=== PATIENT | male | born 1985 | race Caucasian/White ===

== ENCOUNTER 2020-06-17 18:41 | Emergency (ER) | payer BC, MEDICAID ==
[~2020-06-17] VITALS: Ht 175.3 cm; Wt 61.8 kg
[~2020-06-17 18:41] MED LIST: MECL-159
[2020-06-17 18:47] VITALS: BP 156/98
[2020-06-17] MEDS ORDERED: NAPR-56 PO (19:33)
[2020-06-17] MEDS ORDERED: TRAM50TA2 PO (19:33)
[2020-06-17] MEDS ORDERED: ketorolac trometh inj. 60 MG/2 ML VIAL IM ONE (19:35)
== END 2020-06-17 19:56 | disposition home or self-care (01) ==
LOC: ER 18:42
DX: M25.562 Pain in left knee (principal); G89.29 Other chronic pain; F12.90 Cannabis use, unspecified, uncomplicated; Z72.89 Other problems related to lifestyle; Z56.0 Unemployment, unspecified; Z79.899 Other long term (current) drug therapy
CPT/HCPCS: 29505; 96372; 99284; J1885

== ENCOUNTER 2022-02-04 16:35 | Emergency (ER) | payer BC ==
[~2022-02-04] VITALS: Ht 175.3 cm; Wt 62.7 kg
[2022-02-04 16:41] VITALS: BP 111/73
[2022-02-04] MEDS ORDERED: CEPH-585 PO (17:21)
== END 2022-02-04 17:54 | disposition home or self-care (01) ==
LOC: ER 16:36
DX: L02.31 Cutaneous abscess of buttock (principal); G89.29 Other chronic pain; M54.50 Low back pain, unspecified; J44.9 Chronic obstructive pulmonary disease, unspecified; F12.90 Cannabis use, unspecified, uncomplicated; Z56.0 Unemployment, unspecified
CPT/HCPCS: 99283

== ENCOUNTER 2023-08-21 12:37 | Emergency (ER) | payer BC, OTHER ==
[~2023-08-21] VITALS: Ht 177.8 cm; Wt 63.6 kg
[~2023-08-21 12:37] MED LIST changes: -MECL-159; +MECL-302
[2023-08-21] MEDS: LIDOcaine 1% W/epiNEPHrine 1:100,000 20ml vial IJ ONE (12:55)
[2023-08-21 13:15] LABS: BASOPHILS % (AUTO) 0.3 % (0-1); EOSINOPHILS # (AUTO) 0.1 X10'3 (0-0.9); HEMATOCRIT 42.1 % (42.0-52.0); HEMOGLOBIN 14.1 g/dl (14.0-17.9); LYMPHOCYTES # (AUTO) 2.3 X10'3 (1.1-4.8); LYMPHOCYTES % (AUTO) 16.3 % (21-51); MEAN CORPUSCULAR HEMOGLOBIN 29.6 PG (27.0-31.0); MEAN CORPUSCULAR HGB CONC 33.4 g/dL (33.0-36.5); MEAN CORPUSCULAR VOLUME 88.7 FL (78-98); MONOCYTES # (AUTO) 1.2 X10'3 (0-0.9); MONOCYTES % (AUTO) 8.2 % (2-12); NEUTROPHILS # (AUTO) 10.5 X10'3 (1.8-7.7); NEUTROPHILS % (AUTO) 74.2 % (42-75); PLATELET COUNT 273 X10'3 (140-440); RED BLOOD COUNT 4.74 X10'6 (4.70-6.10); WHITE BLOOD COUNT 14.2 X10'3 (4.5-11.0)
[2023-08-21 13:34] LABS: ALBUMIN 4.1 G/DL (3.4-5.0); ANION GAP 9 (8-16); BLOOD UREA NITROGEN 10 MG/DL (7-18); BUN/CREATININE RATIO 7.1 (10.0-20.0); CALCIUM 9.1 MG/DL (8.5-10.1); CHLORIDE 104 MMOL/L (99-107); GLUCOSE 173 MG/DL (70-104); POTASSIUM 3.3 MMOL/L (3.5-5.1); PRO BRAIN NATRIURETIC PEPTIDE < 30 PG/ML (0-125); SODIUM 141 MMOL/L (135-145); TOTAL CARBON DIOXIDE 27.7 MMOL/L (24-32); eCRCL 65 ML/MIN; eGFR 57 ML/MIN
[2023-08-21] MEDS: TETanus/Pertussis (Acell)/Diphther VAC/PF (Tdap-Adult) 0.5ml syringe IMVAC ONE (13:46)
[2023-08-21] MEDS: ondansetron/PF 4mg/2ml inj IV ONE (13:50)
[2023-08-21] MEDS ORDERED: AMOX-117 PO (13:52)
[2023-08-21] MEDS ORDERED: HYDR-3965 PO (13:52)
[2023-08-21] MEDS: acetaminophen 1,000mg/100ml IV 100 ML IV STA (13:55)
[2023-08-21 15:50] VITALS: BP 115/74; PULSE 84; RESP 18; O2SAT 97
== END 2023-08-21 15:55 | disposition home or self-care (01) ==
LOC: ER 12:38
DX: S01.112A Laceration without foreign body of left eyelid and periocular area, initial encounter (principal); S02.32XA Fracture of orbital floor, left side, initial encounter for closed fracture; S02.40DA Maxillary fracture, left side, initial encounter for closed fracture; J44.9 Chronic obstructive pulmonary disease, unspecified; R55 Syncope and collapse; W19.XXXA Unspecified fall, initial encounter; Y93.89 Activity, other specified; Y92.89 Other specified places as the place of occurrence of the external cause; Y99.8 Other external cause status
CPT/HCPCS: 12011; 36415; 70450; 70486; 80048; 82948; 83880; 84484; 85025; 90471; 90715; 93005; 96374; 96375; 99285; J0131; J2405; J7030; A4565; A6258; A6449